=== PATIENT | male | born 1980 | race American Indian/Alaskan Native ===

== ENCOUNTER 2022-03-14 16:17 | Emergency (ER) | payer SELFPAY ==
[2022-03-14 18:47] VITALS: BP 159/84; PULSE 103
== END 2022-03-14 19:35 | disposition home or self-care (01) ==
LOC: JD.ED 16:17
DX: F32.9 Major depressive disorder, single episode, unspecified (principal); I10 Essential (primary) hypertension; F17.210 Nicotine dependence, cigarettes, uncomplicated; Z90.49 Acquired absence of other specified parts of digestive tract
CPT/HCPCS: 99283